=== PATIENT | female | born 1970 | race Two or more races ===

== ENCOUNTER 2019-11-28 14:53 | Inpatient (IN) | payer OTHER ==
[~2019-11-28] VITALS: Ht 157.5 cm; Wt 66.8 kg
[2019-11-28] MEDS ORDERED: DOXYCYCLINE 100 MG TAB/CAP PO ONE (15:45)
[2019-11-28] MEDS ORDERED: ACETAMINOPHEN 325 MG TAB PO ONE (15:45)
[2019-11-28] MEDS ORDERED: ASCORBIC ACID 500 MG TAB PO ONE (15:45)
[2019-11-28] MEDS ORDERED: ZINC SULFATE 220mg CAP or TAB PO ONE (15:45)
[2019-11-28] MEDS ORDERED: cefTRIAXone 1GM/50ML D5W 50 ML IV ONE (15:45)
[2019-11-28 15:55] LABS: Basophils # (auto) 0 10 ^3/uL (0-0.2); Basophils % (auto) 1.4 % (0.0-2.0); Eosinophils # (auto) 0 10 ^3/uL (0-0.8); Eosinophils % (auto) 0.1 % (0.0-7.0); Hematocrit 39.6 % (36.0-46.0); Hemoglobin 13.3 g/dL (12.2-16.2); Lymphocytes # (auto) 0.5 10 ^3/uL (0.4-5.4); Lymphocytes % (auto) 22.2 % (10.0-50.0); Mean Corpuscular Hemoglobin 28.3 pg (28.0-32.0); Mean Corpuscular Hgb Conc. 33.6 g/dL (32.0-36.0); Mean Corpuscular Volume 84.2 fL (80.0-100.0); Monocytes # (auto) 0.2 10 ^3/uL (0-1.3); Monocytes % (auto) 10.9 % (0.0-12.0); Neutrophils # (auto) 1.4 10 ^3/uL (1.6-8.6); Neutrophils % (auto) 65.4 % (37.0-80.0); Platelet Count (auto) 164 10^3/uL (140-450); Red Cell Distribution Width 14.2 % (11.8-14.3); White Blood Cell 2.1 10^3/uL (4.4-10.8)
[2019-11-28 16:00] LABS: Albumin 3.5 g/dL (3.4-5.0); Anion Gap 7 (5-15); Blood Urea Nitrogen 12 mg/dL (7-18); Calcium 8.4 mg/dL (8.5-10.1); Carbon Dioxide 27 mmol/L (21-32); Chloride 99 mmol/L (98-107); Glucose 89 mg/dL (74-106); Potassium 3.3 mmol/L (3.5-5.1); Sodium 133 mmol/L (136-145)
[2019-11-28 16:06] LABS: Alanine Aminotransferase 29 U/L (13-56); Alkaline Phosphatase 70 U/L (45-117); Aspartate Aminotransferase 49 U/L (15-37); BUN/Creatinine Ratio 14.5; Bilirubin, Total 0.5 mg/dL (0.2-1.0); GFR African American 93 mL/min; GFR Non-African American 77 mL/min; Lactate Dehydrogenase 295 U/L (84-246); Total Protein 7.9 g/dL (6.4-8.2)
[2019-11-28] MEDS ORDERED: HEPARIN SODIUM (PORCINE) 5000 UNITS/ML 1ML VIAL IV ONE (16:15)
[2019-11-28] MEDS ORDERED: HEPARIN SODIUM (PORCINE) 5000 UNITS/ML 1ML VIAL ONE (16:16)
[2019-11-28] MEDS ORDERED: POTASSIUM EFFERVESENT TAB 25 MEQ GT ONE (16:45)
[2019-11-28] MEDS ORDERED: POTASSIUM EFFERVESENT TAB 25 MEQ PO ONE (17:00)
[2019-11-28] MEDS ORDERED: NITROGLYCERIN 0.4 MG SL TAB SL PRN (17:00)
[2019-11-28] MEDS ORDERED: ACETAMINOPHEN 500 MG TAB PO PRN (18:15)
[2019-11-28] MEDS ORDERED: LACTULOSE 20Gm/30ML SOLN PO PRN (18:15)
[2019-11-28] MEDS ORDERED: traMADol HCL 50 MG TAB PO PRN (18:15)
[2019-11-28] MEDS ORDERED: MILK OF MAGNESIA 30ML SUSP PO PRN (18:15)
[2019-11-28] MEDS ORDERED: PROMETHAZINE HCL 25 MG/ML 1ML IV PRN (18:15)
[2019-11-28] MEDS ORDERED: ALBUTEROL SULF 2.5 MG/0.5ML(0.5%) NEB SOLN NEB PRN (18:15)
[2019-11-28] MEDS ORDERED: TEMAZEPAM 15 MG CAP PO PRN (18:15)
[2019-11-28] MEDS: SODIUM CHLORIDE 0.9% 1,000 ML IV SCH (20:15)
[2019-11-28] MEDS: levoFLOXacin 500MG 100 ML IV SCH (20:16)
[2019-11-28 21:11] LABS: Urine Bacteria FEW /hpf (None Seen); Urine Blood Negative /uL (Negative); Urine Mucus FEW (None Seen); Urine Specific Gravity 1.027 (1.001-1.035); Urine WBC 56 /hpf (0 - 5)
[2019-11-28 21:28] VITALS: BP 102/67
[2019-11-28] MEDS: DexAMETHasone SOD PHOS 4 MG/1ML SDV INJ IV SCH (21:59)
[2019-11-28] MEDS: CLINDAMYCIN 600MG IV 50 ML IV SCH (21:59)
[2019-11-28] MEDS: ENOXAPARIN SOD 60 MG/0.6 ML SYRINGE SC SCH (21:59)
[2019-11-28] MEDS ORDERED: ALBUTEROL SULF HFA 90MCG INH 200DOSE IN SCH (22:00)
[2019-11-28] MEDS ORDERED: ENOXAPARIN SOD 40 MG/0.4 ML SYRINGE SC SCH (22:00)
[2019-11-29] MEDS ORDERED: LEVO88TA4 PO (01:20)
[2019-11-29 05:00] VITALS: BP 100/60
[2019-11-29] MEDS: SODIUM CHLORIDE 0.9% 1,000 ML IV SCH (05:48)
[2019-11-29] MEDS: CLINDAMYCIN 600MG IV 50 ML IV SCH (05:48)
[2019-11-29 08:56] VITALS: BP 89/48
[2019-11-29 09:44] LABS: Hematocrit 40.1 % (36.0-46.0); Red Cell Distribution Width 14.5 % (11.8-14.3)
[2019-11-29 09:47] LABS: Hemoglobin 13.5 g/dL (12.2-16.2); Mean Corpuscular Hemoglobin 28.5 pg (28.0-32.0); Mean Corpuscular Hgb Conc. 33.7 g/dL (32.0-36.0); Mean Corpuscular Volume 84.5 fL (80.0-100.0); Platelet Count (auto) 179 10^3/uL (140-450); Red Blood Cells 4.75 10^6/uL (4.0-5.20)
[2019-11-29 10:03] LABS: Calcium 8.3 mg/dL (8.5-10.1); Potassium 3.5 mmol/L (3.5-5.1)
[2019-11-29 10:06] LABS: BUN/Creatinine Ratio 18.1; Bilirubin, Total 0.4 mg/dL (0.2-1.0); Total Protein 7.2 g/dL (6.4-8.2)
[2019-11-29 10:20] LABS: White Blood Cell 1.5 10^3/uL (4.4-10.8)
[2019-11-29 10:21] LABS: Basophils % (manual) 0 (0.0-2.0); Blast Cells 0; Eosinophils % (manual) 0 (0-7); Metamyelocytes % 0; Myelocytes % 0; Promyelocytes % 0; Reactive Lymphocytes 0
[2019-11-29] MEDS: DexAMETHasone SOD PHOS 4 MG/1ML SDV INJ IV SCH (10:41)
[2019-11-29] MEDS: levoFLOXacin 500MG 100 ML IV SCH (10:41)
[2019-11-29] MEDS: CHOLECALCIFEROL (VITD3) 1,000IU=25mCg TAB PO SCH (10:42)
[2019-11-29] MEDS: ENOXAPARIN SOD 60 MG/0.6 ML SYRINGE SC SCH ×2 (10:42→21:55)
[2019-11-29] MEDS: ASCORBIC ACID 1,000 MG TAB PO SCH (10:42)
[2019-11-29] MEDS: ZINC SULFATE 220mg CAP or TAB PO SCH (10:42)
[2019-11-29 10:58] LABS: Band Neutrophils % (manual) 1; Lymphocytes % (manual) 27 (10.0-50.0); Monocytes % (manual) 1 (0-12)
[2019-11-29 13:00] VITALS: BP 101/69
[2019-11-29] MEDS ORDERED: LEVOTHYROXINE SODIUM 88 MCG TAB PO ONE (13:00)
[2019-11-29] MEDS: ALBUTEROL SULF HFA 90MCG INH 200DOSE IN SCH ×2 (14:00→21:54)
[2019-11-29 16:38] VITALS: BP 91/56
[2019-11-29] MEDS: methylPREDNISolone SOD SUCC 40 MG/ML VL IV SCH (21:54)
[2019-11-29 22:00] VITALS: BP 98/68
[2019-11-30 02:52] VITALS: BP 98/68
[2019-11-30 05:00] VITALS: BP 104/63
[2019-11-30] MEDS: ALBUTEROL SULF HFA 90MCG INH 200DOSE IN SCH ×3 (05:30→21:22)
[2019-11-30] MEDS: LEVOTHYROXINE SODIUM 88 MCG TAB PO SCH (06:24)
[2019-11-30 08:35] VITALS: BP 102/59
[2019-11-30] MEDS: levoFLOXacin 500MG 100 ML IV SCH (09:37)
[2019-11-30] MEDS: ENOXAPARIN SOD 60 MG/0.6 ML SYRINGE SC SCH ×2 (09:38→21:14)
[2019-11-30] MEDS: methylPREDNISolone SOD SUCC 40 MG/ML VL IV SCH ×2 (09:38→21:14)
[2019-11-30] MEDS: ZINC SULFATE 220mg CAP or TAB PO SCH (09:39)
[2019-11-30] MEDS: ASCORBIC ACID 1,000 MG TAB PO SCH (09:39)
[2019-11-30] MEDS: CHOLECALCIFEROL (VITD3) 1,000IU=25mCg TAB PO SCH (09:39)
[2019-11-30 13:15] VITALS: BP 113/65
[2019-11-30] MEDS ORDERED: MECLIZINE HCL 25 MG TAB PO ONE (15:30)
[2019-11-30] MEDS ORDERED: PYRIDOXINE HCL 50 MG TAB PO ONE (15:30)
[2019-11-30 16:45] VITALS: BP 105/62
[2019-11-30] MEDS ORDERED: MECLIZINE HCL 25 MG TAB PO PRN (18:00)
[2019-11-30 22:14] VITALS: BP 105/67
[2019-12-01 05:39] VITALS: BP 116/73
[2019-12-01] MEDS: ALBUTEROL SULF HFA 90MCG INH 200DOSE IN SCH ×2 (06:16→14:20)
[2019-12-01] MEDS: LEVOTHYROXINE SODIUM 88 MCG TAB PO SCH (06:17)
[2019-12-01 07:31] LABS: Basophils # (auto) 0 10 ^3/uL (0-0.2); Eosinophils # (auto) 0 10 ^3/uL (0-0.8); Eosinophils % (auto) 0.1 % (0.0-7.0); Hematocrit 37.6 % (36.0-46.0); Hemoglobin 12.6 g/dL (12.2-16.2); Lymphocytes # (auto) 0.4 10 ^3/uL (0.4-5.4); Lymphocytes % (auto) 8.4 % (10.0-50.0); Mean Corpuscular Hemoglobin 28.1 pg (28.0-32.0); Mean Corpuscular Hgb Conc. 33.5 g/dL (32.0-36.0); Mean Corpuscular Volume 83.9 fL (80.0-100.0); Monocytes # (auto) 0.2 10 ^3/uL (0-1.3); Monocytes % (auto) 4.8 % (0.0-12.0); Neutrophils # (auto) 4.4 10 ^3/uL (1.6-8.6); Neutrophils % (auto) 86.7 % (37.0-80.0); Platelet Count (auto) 259 10^3/uL (140-450); Red Blood Cells 4.49 10^6/uL (4.0-5.20); Red Cell Distribution Width 14.6 % (11.8-14.3); White Blood Cell 5.1 10^3/uL (4.4-10.8)
[2019-12-01 09:00] VITALS: BP 112/70
[2019-12-01] MEDS: CHOLECALCIFEROL (VITD3) 1,000IU=25mCg TAB PO SCH (09:53)
[2019-12-01] MEDS: levoFLOXacin 500MG 100 ML IV SCH (09:53)
[2019-12-01] MEDS: ENOXAPARIN SOD 60 MG/0.6 ML SYRINGE SC SCH (09:54)
[2019-12-01] MEDS: ZINC SULFATE 220mg CAP or TAB PO SCH (09:54)
[2019-12-01] MEDS: ASCORBIC ACID 1,000 MG TAB PO SCH (09:54)
[2019-12-01] MEDS: methylPREDNISolone SOD SUCC 40 MG/ML VL IV SCH (09:55)
[2019-12-01] MEDS ORDERED: PYRIDOXINE HCL 50 MG TAB PO SCH (10:00)
[2019-12-01] MEDS ORDERED: ALBUAER3 IN (10:20)
[2019-12-01] MEDS ORDERED: PANT40TA2 PO (10:20)
[2019-12-01] MEDS ORDERED: LEVO750T64 PO (10:20)
[2019-12-01] MEDS ORDERED: MECL25TA18 PO (10:20)
[2019-12-01] MEDS ORDERED: METH4PAK PO (10:20)
[2019-12-01] MEDS ORDERED: CHOL1000 PO (10:20)
[2019-12-01] MEDS ORDERED: ASCO10003 PO (10:20)
[2019-12-01] MEDS ORDERED: MULTTAB75 PO (10:21)
[2019-12-01 13:00] VITALS: BP 115/77
== END 2019-12-01 16:45 | disposition home or self-care (01) | DRG 137 ==
LOC: ER 14:53 → TELE 14:54 → TELE-EAST 23:57
PROVIDERS: ADMIT Internal Medicine; ATTEND Internal Medicine
DX: U07.1 COVID-19 (principal); J96.01 Acute respiratory failure with hypoxia; J12.89 Other viral pneumonia; R65.10 Systemic inflammatory response syndrome (SIRS) of non-infectious origin without acute organ dysfunction; E44.1 Mild protein-calorie malnutrition; E87.6 Hypokalemia; G47.00 Insomnia, unspecified; N39.0 Urinary tract infection, site not specified; K59.00 Constipation, unspecified; E03.9 Hypothyroidism, unspecified; Z88.5 Allergy status to narcotic agent; Z79.899 Other long term (current) drug therapy; Z68.26 Body mass index [BMI] 26.0-26.9, adult
CPT/HCPCS: 36415; 71045; 80053; 81001; 82728; 83036; 83605; 83615; 83735; 84439; 84443; 84484; 85007; 85025; 85027; 85379; 86141; 86850; 86900; 86901; 87040; 87070; 87205; 87804; 87880; 93005; 94640; G0378; J0696; J1100; J1956; J3490

== ENCOUNTER 2022-05-21 23:52 | Emergency (ER) | payer MEDICAID, OTHER ==
[~2022-05-21] VITALS: Ht 157.5 cm; Wt 63.6 kg
[~2022-05-21 23:52] MED LIST: ALBUAER3 IN; ASCO10003 PO; CHOL1TAB30 PO; LEVO750T64 PO; LEVO88TA4 PO; MECL25TA18 PO; METH4PAK PO; MULTTAB75 PO; PANT40TA2 PO
[2022-05-21 23:55] VITALS: BP 167/101
[2022-05-22] MEDS ORDERED: IBUPROFEN 600 MG TAB PO ONE (00:15)
[2022-05-22 00:27] LABS: Basophils # (auto) 0.1 10 ^3/uL (0-0.2); Basophils % (auto) 1.4 % (0.0-2.0); Eosinophils # (auto) 0.1 10 ^3/uL (0-0.8); Eosinophils % (auto) 1.5 % (0.0-7.0); Hematocrit 36.9 % (36.0-46.0); Hemoglobin 12.4 g/dL (12.2-16.2); Lymphocytes % (auto) 50.2 % (10.0-50.0); Mean Corpuscular Hgb Conc. 33.7 g/dL (32.0-36.0); Mean Corpuscular Volume 86.1 fL (80.0-100.0); Monocytes # (auto) 0.3 10 ^3/uL (0-1.3); Monocytes % (auto) 8.2 % (0.0-12.0); Neutrophils # (auto) 1.5 10 ^3/uL (1.6-8.6); Neutrophils % (auto) 38.7 % (37.0-80.0); Nucleated Red Blood Cells % 0.1 %; Red Blood Cells 4.28 10^6/uL (4.0-5.20); Red Cell Distribution Width 13.7 % (11.8-14.3); White Blood Cell 3.9 10^3/uL (4.4-10.8)
[2022-05-22] MEDS ORDERED: IBU600T PO (00:34)
[2022-05-22 00:46] LABS: Albumin 4.1 g/dL (3.4-5.0); Calcium 9.9 mg/dL (8.5-10.1)
[2022-05-22 00:48] LABS: BUN/Creatinine Ratio 34.5
[2022-05-22 00:50] LABS: Bilirubin, Total 0.5 mg/dL (0.2-1.0); Total Protein 7.3 g/dL (6.4-8.2)
== END 2022-05-22 06:05 | disposition left against medical advice (07) ==
LOC: ER 23:52
DX: R07.89 Other chest pain (principal); I51.4 Myocarditis, unspecified; E78.5 Hyperlipidemia, unspecified; Z79.899 Other long term (current) drug therapy
CPT/HCPCS: 36415; 80053; 84484; 85025; 85379; 93005

== ENCOUNTER 2023-08-10 12:22 | Emergency (ER) | payer MEDICAID ==
[~2023-08-10] VITALS: Ht 157.5 cm; Wt 71.0 kg
[~2023-08-10 12:22] MED LIST changes: +IBU600T PO; +LEVO750T40 PO; -LEVO750T64 PO; +MECL1TAB32 PO; -MECL25TA18 PO
[2023-08-10 14:14] LABS: Basophils # (auto) 0.1 10 ^3/uL (0-0.2); Basophils % (auto) 1.3 % (0.0-2.0); Eosinophils # (auto) 0.1 10 ^3/uL (0-0.8); Eosinophils % (auto) 1.1 % (0.0-7.0); Hematocrit 39.3 % (36.0-46.0); Lymphocytes # (auto) 1.8 10 ^3/uL (0.4-5.4); Lymphocytes % (auto) 35.4 % (10.0-50.0); Mean Corpuscular Hemoglobin 28.6 pg (28.0-32.0); Mean Corpuscular Hgb Conc. 33.1 g/dL (32.0-36.0); Mean Corpuscular Volume 86.4 fL (80.0-100.0); Monocytes # (auto) 0.4 10 ^3/uL (0-1.3); Neutrophils # (auto) 2.9 10 ^3/uL (1.6-8.6); Neutrophils % (auto) 55.2 % (37.0-80.0); Nucleated Red Blood Cells % 0.1 %; Red Blood Cells 4.55 10^6/uL (4.0-5.20); Red Cell Distribution Width 14.5 % (11.8-14.3); White Blood Cell 5.2 10^3/uL (4.4-10.8)
[2023-08-10 14:15] LABS: Chloride 103 mmol/L (98-107); Potassium 3.9 mmol/L (3.5-5.1); Sodium 139 mmol/L (136-145)
[2023-08-10 14:16] LABS: Anion Gap 5 (5-15); Calcium 9.9 mg/dL (8.5-10.1); Carbon Dioxide 31 mmol/L (20-30)
[2023-08-10 14:21] LABS: BUN/Creatinine Ratio 28.6 (10.0-20.0); Blood Urea Nitrogen 20 mg/dL (9-23); Glucose 90 mg/dL (74-106)
[2023-08-10 14:32] LABS: INR 1.01 (0.9-1.15); Prothrombin Time 10.6 sec (9.3-11.8)
[2023-08-10] MEDS ORDERED: NAPR-1334 PO (14:39)
[2023-08-10] MEDS ORDERED: ZOFR4T PO (14:42)
[2023-08-10] MEDS ORDERED: MECL1TAB32 PO (14:42)
[2023-08-10 15:11] VITALS: BP 113/69; PULSE 67; RESP 16; TEMP 97.4; O2SAT 98
== END 2023-08-10 18:24 | disposition home or self-care (01) ==
LOC: ER 12:22
DX: R42 Dizziness and giddiness (principal); I83.91 Asymptomatic varicose veins of right lower extremity; E03.9 Hypothyroidism, unspecified; E78.5 Hyperlipidemia, unspecified
CPT/HCPCS: 36415; 70450; 71045; 80048; 83880; 84484; 85025; 85610; 93005